=== PATIENT | male | born 1990 | race Two or more races ===

== ENCOUNTER 2025-09-20 17:45 | Emergency (ER) | payer SELFPAY ==
[~2025-09-20] VITALS: Ht 172.7 cm; Wt 73.0 kg
[2025-09-20] MEDS: diphenhydrAMINE HCL 50 MG/1 ML VL IV ONE (18:02)
[2025-09-20 18:15] VITALS: BP 144/74; PULSE 61; RESP 16; TEMP 97.9; O2SAT 97
--- NOTE | 2025-09-20 21:11 | ED.PDOC ---
History of Present Illness HPI Comments 34 y/o Irish-speaking M presents with c/c of nonradiating, generalized abdominal pain, nausea, vomiting, shortness of breath, and generalized body numbness. Patient endorses on 1x day history of GI symptoms following heavy alcohol intake, while at a part, the night before. Onset of difficulty breathing and numbness after vomiting en route to ED. No endorsed additional substance use or known recent sick contacts, injuries, spoiled food consumption, or pertinent medical, surgical, or family history. Numbness is stated to improve whenever bending forward. He denies any bloody or bilious vomitus, diarrhea, constipation, urinary problems, chest pain, or further acute symptoms. REVIEW OF SYSTEMS: General: No fever, no chills, HEENT: No neck pain, no blurred vision Cardiac: No chest pain. No palpitations. Lungs: Shortness of breath, GI: Abdominal pain, nausea, vomiting Musculoskeletal: No joint pain , no back pain Skin: No rash, no wound Neuro: Generalized numbness, no headache, no dizziness, no syncope PHYSICAL EXAM: General: Awake, alert and oriented. No acute distress. Skin: Skin in warm, dry and intact without rashes or lesions. HEENT: The head is normocephalic and atraumatic. Conjunctivae are clear without exudates or hemorrhage. Sclera is non-icteric. Father oral mucous membranes. Neck: Normal range of motion. No JVD. Cardiac: Regular rate Respiratory: No signs of respiratory distress. No Stridor. Extremities: Upper and lower extremities are atraumatic in appearance without deformity. Neurological: The patient is awake, alert and oriented to person, place, and time with normal speech. Speech is clear. There is no facial asymmetry. Psychiatric: Appropriate mood and affect. Good judgement and insight. Chief Complaint: Anxiety Time Seen by MD: 18:25 Reviewed Notes: Nurses Notes, Medications, Allergies Allergies: Coded Allergies: NO KNOWN ALLERGIES (Unverified , 09/20/25) Information Source: Patient, Spouse Mode of Arrival: Ambulatory Severity: Moderate Timing: Hours Duration: Since onset Prehospital treatment: None Past Medical History PAST MEDICAL HISTORY: Denies Surgical History: Denies all surgeries Family History Family History: Unknown Social History Smoker: Non-Smoker Alcohol: Occasionally Drugs: Denies Drug Use Lives In: Home Was a procedure done? Was a procedure done?: No Differential Dx Considerations may include: Differential diagnoses considered include: Abdominal aortic aneurysm, LA, esophageal rupture, intestinal obstruction, mesenteric ischemia, perforated viscus or solid organ rupture, CHF with hepatomegaly, pneumonia, abscess, appendicitis, biliary disease, diverticulitis, gastritis, gastroenteritis, hepatitis, hernia, inflammatory bowel disease, pancreatitis, peptic ulcer disease, urinary tract infection, ureteral colic, constipation, GERD, irritable syndrome, abdominal wall pain, nonspecific abdominal pain, herpes zoster, nephrolithiasis. X-Ray, Labs, Meds, VS Vital Signs Date Time Temp Pulse Resp B/P (MAP) Pulse Ox O2 Delivery O2 Flow Rate FiO2 09/20/25 18:15 61 16 97 Room Air* 0 21 09/20/25 18:15 97.9 61 18 144/74 (97) 97 97.9 09/20/25 17:55 92 34 99 Time of 1ST Reevaluation: 18:55 Reevaluation 1ST: Unchanged Patient Education/Counseling: Treatment Family Education/Counseling: Treatment SEPSIS Sepsis Screen Date sepsis recognized/suspect: Sep 20, 2025 Time Sepsis recognized/suspect: 1814 Recent Procedure: No On Antibiotic Therapy: No Respiratory Rate >20: No Heart Rate >90: No Temp<36 C (96.8 F) or >38.3 C: No SBP <90 or MAP <65 mmHG: No New Acute Mental Status Change: No Is the patient on CPAP, BIPAP,: No Vital Signs Date Time Temp Pulse Resp B/P (MAP) Pulse Ox O2 Delivery O2 Flow Rate FiO2 09/20/25 18:15 61 16 97 Room Air* 0 21 09/20/25 18:15 97.9 61 18 144/74 (97) 97 97.9 09/20/25 17:55 92 34 99 Departure 1 Departure Time of Disposition: 19:14 Impression: Primary Impression: Numbness Additional Impressions: Anxiety Nausea and vomiting Disposition: LEFT AGAINST MEDICAL ADVICE Condition: Stable Critical Care Note Critical Care Time?: No Stability Stability form required: No Heart Score Heart Score: Heart Score Response (Comments) Value History N/A 0 EKG N/A 0 Age N/A 0 Risk Factors N/A 0 Troponin N/A 0 Total 0 I personally scribed for NEIL GARZA MD ([email or web address]) on 09/20/25 at 21:11. Electronically submitted by Mao Paulino ([email or web address]). NEIL GARZA MD Sep 20, 2025 21:11
== END 2025-09-20 19:20 | disposition left against medical advice (07) ==
LOC: ER 17:45
DX: F41.9 Anxiety disorder, unspecified (principal); R11.2 Nausea with vomiting, unspecified; R20.0 Anesthesia of skin; F10.90 Alcohol use, unspecified, uncomplicated; Y90.9 Presence of alcohol in blood, level not specified
CPT/HCPCS: 82947; 96374; 99283; J1200